=== PATIENT | male | born 1970 | race Caucasian/White ===

== ENCOUNTER 2017-04-01 17:26 | Emergency (ER) | payer BC, MEDICAID ==
[~2017-04-01] VITALS: Ht 175.3 cm; Wt 65.0 kg
[~2017-04-01 17:26] MED LIST: DIVA500T3 PO
[2017-04-01 17:27] VITALS: BP 119/65
== END 2017-04-01 18:32 | disposition left against medical advice (07) ==
LOC: ER 17:26
DX: R56.9 Unspecified convulsions (principal); Z53.21 Procedure and treatment not carried out due to patient leaving prior to being seen by health care provider

== ENCOUNTER 2017-05-10 02:08 | Emergency (ER) | payer BC, MEDICAID ==
[~2017-05-10] VITALS: Ht 167.6 cm; Wt 64.9 kg
[2017-05-10 02:26] VITALS: BP 125/77
== END 2017-05-10 08:41 | disposition left against medical advice (07) ==
LOC: ER 02:08
DX: Z53.21 Procedure and treatment not carried out due to patient leaving prior to being seen by health care provider (principal); G43.909 Migraine, unspecified, not intractable, without status migrainosus; R56.9 Unspecified convulsions

== ENCOUNTER 2018-06-08 14:08 | Emergency (ER) | payer OTHER, MEDICAID ==
[~2018-06-08] VITALS: Ht 167.6 cm; Wt 63.0 kg
[2018-06-08 15:19] VITALS: BP 105/40
== END 2018-06-08 20:00 | disposition left against medical advice (07) ==
LOC: ER 14:08
DX: S40.021A Contusion of right upper arm, initial encounter (principal); R56.9 Unspecified convulsions; X58.XXXA Exposure to other specified factors, initial encounter; Y93.89 Activity, other specified; Y92.89 Other specified places as the place of occurrence of the external cause; Y99.8 Other external cause status
CPT/HCPCS: 99281

== ENCOUNTER 2018-11-23 14:04 | Emergency (ER) | payer OTHER, MEDICAID ==
[~2018-11-23] VITALS: Ht 167.6 cm; Wt 61.0 kg
[2018-11-23] MEDS ORDERED: METHOCARBAMOL 500MG TABLET PO ONE (16:30)
[2018-11-23] MEDS ORDERED: KETOROLAC 30MG/ML VIAL IM ONE (16:30)
[2018-11-23 17:13] LABS: CLARITY URINE CLEAR (CLEAR); COLOR URINE YELLOW (YELLOW); KETONES URINE TRACE (NEGATIVE); LEUKOCYTE ESTERASE URINE NEGATIVE (NEGATIVE); NITRITE URINE NEGATIVE (NEGATIVE); OCCULT BLOOD URINE NEGATIVE (NEGATIVE); PROTEIN URINE NEGATIVE (NEGATIVE); UROBILINOGEN URINE 0.2 E.U./dL (0.2-1.0)
[2018-11-23 18:43] VITALS: BP 126/66
== END 2018-11-23 18:44 | disposition home or self-care (01) ==
LOC: ER 14:04
DX: M54.5 Low back pain (principal); G43.909 Migraine, unspecified, not intractable, without status migrainosus; R56.9 Unspecified convulsions
CPT/HCPCS: 81003; 96372; 99283; J1885